=== PATIENT | female | born 1930 | race Caucasian/White ===

== ENCOUNTER → 2017-05-14 | Outpatient (CLI) | payer MEDICARE ==
--- NOTE | 2017-05-14 12:11 | FL ---
EXAMINATION TYPE: FL barium swallow w video DATE OF EXAM: 05/14/2017 MODIFIED SWALLOW / DEGLUTITION STUDY CLINICAL HISTORY: Dysphagia. TECHNIQUE: Deglutition study is performed utilizing thin liquid barium, pudding thick liquid barium, barium thick applesauce, and barium coated cracker. 1.27 minutes of fluoroscopy time was utilized an d 0 fluoroscopic images were saved although video real-time fluoroscopy was performed. COMPARISON: None. FINDINGS: The oral and pharyngeal phases show satisfactory initiation and propagation with all modali ties tested. Normal mastication is seen with solid modalities tested. There is no evidence of laryn geal aspiration with any modality tested. Transient laryngeal penetration was seen with the thin lavern um consistency. This resolved with the utilization of the chin tuck maneuver. No penetration with the remaining consistencies. No significant pharyngeal residue was appreciated. IMPRESSION: Transient laryngeal penetration with the thin barium consistency, resolved with the chin tuck maneuver. Please refer to speech therapist notes for further details if necessary.
== END | disposition home or self-care (01) ==
LOC: RADFLMAIN 10:53
PROVIDERS: ATTEND Internal Medicine
DX: R13.10 Dysphagia, unspecified (principal)
CPT/HCPCS: 74230

== ENCOUNTER 2017-08-26 08:07 | Day surgery (SDC) | payer MEDICARE ==
[2017-08-24 14:13] VITALS: BMI 25.8
[~2017-08-26 08:07] MED LIST: LACTATED RINGERS 1,000 ML IV SCH; LIDOCAINE 1% 20 ML VIAL (10MG/ML) FOR IV START INTRADERMA PRN
[2017-08-26] MEDS ORDERED: LACTATED RINGERS 1,000 ML IV ONE (08:17)
[2017-08-26 08:20] VITALS: RESP 16; TEMP 97.2
[2017-08-26] MEDS ORDERED: PROPOFOL 10 MG/ML 20 ML VIAL IV ONE (08:27)
[2017-08-26 08:38] LABS: Glucose,Whole Blood 99 mg/dL (75-99)
--- NOTE | 2017-08-26 08:44 | P.PCN ---
Date of Procedure: 08/26/17 Procedure(s) Performed: BRIEF HISTORY: Patient is a 87-year-old pleasant white female, scheduled for an elective colonoscopy as a part of evaluation of anemia and Hemoccult-positive stool. She denies any change in bowel habits or rectal bleeding. 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 PROCEDURE PERFORMED: Colonoscopy. PREOPERATIVE DIAGNOSIS: Hemoccult-positive stool and anemia. IV sedation per Anesthesia. PROCEDURE: After informed consent was obtained, the patient, was brought into the endoscopy unit. IV sedation was administered by Anesthesia under continuous monitoring. Digital rectal examination was normal. Initially the Olympus CF- 160 flexible video colonoscope was then inserted in the rectum, gradually advanced into the transverse colon where there was ileocolic anastomosis identified. The anastomotic site appeared normal. Mucosa of the transverse colon, descending colon, sigmoid colon, and rectum appeared normal. Scattered sigmoid diverticulosis seen.Retroflexion was performed in the rectum and small internal hemorrhoids were seen. The patient tolerated the procedure well. IMPRESSION: Normal-appearing colon from rectum to mid transverse colon with normal ileocolic anastomosis Scattered sigmoidal diverticulosis Small internal hemorrhoids RECOMMENDATIONS: Findings of this examination were discussed with the patient as well as her family. She was advised to be a high-fiber diet..
[2017-08-26 09:14] VITALS: BP 109/54; PULSE 60
== END 2017-08-26 09:45 | disposition home or self-care (01) ==
LOC: ORWHC2ENDO 08:07
PROVIDERS: ATTEND Internal Medicine Gastroenterology
DX: K57.30 Diverticulosis of large intestine without perforation or abscess without bleeding (principal); D64.9 Anemia, unspecified; K64.8 Other hemorrhoids; K21.9 Gastro-esophageal reflux disease without esophagitis; Z90.49 Acquired absence of other specified parts of digestive tract; I25.10 Atherosclerotic heart disease of native coronary artery without angina pectoris; I10 Essential (primary) hypertension; E11.9 Type 2 diabetes mellitus without complications; Z95.1 Presence of aortocoronary bypass graft; Z79.4 Long term (current) use of insulin; Z79.891 Long term (current) use of opiate analgesic; Z79.899 Other long term (current) drug therapy; G89.29 Other chronic pain; Z88.1 Allergy status to other antibiotic agents; Z88.5 Allergy status to narcotic agent; Z88.0 Allergy status to penicillin; Z88.8 Allergy status to other drugs, medicaments and biological substances
CPT/HCPCS: 45378; J2704

== ENCOUNTER 2019-06-08 10:49 | Observation (INO) | payer MEDICARE ==
--- NOTE | 2019-06-08 11:52 | ED ---
SOB HPI - General Chief Complaint: Shortness of Breath Stated Complaint: Cardiac issues Time Seen by Provider: 06/08/19 10:58 Source: patient, RN notes reviewed Mode of arrival: ambulatory Limitations: no limitations - History of Present Illness Initial Comments: This is a 88-year-old female who was sent in by her doctor for evaluation of exertional dyspnea and weakness she's had exertional dyspnea and sweats with exertion and some chills no dysuria hematuria had recent a urinary tract infection which was treated about 2 weeks ago. She denies any cough phlegm production no other symptoms MD Complaint: shortness of breath - Related Data Home Medications Medication Instructions Recorded Confirmed Ascorbic Acid [Vitamin C] 500 mg PO DAILY 05/08/16 06/08/19 Aspirin EC [Ecotrin Low Dose] 81 mg PO HS 05/08/16 06/08/19 Calcium 1000mg 1,000 mg PO DAILY 05/08/16 06/08/19 Cholecalciferol [Vitamin D3] 2,000 unit PO DAILY 05/08/16 06/08/19 Chromium Picolinate 400 mcg PO DAILY 05/08/16 06/08/19 Folic Acid 0.4 mg PO DAILY 05/08/16 06/08/19 HYDROcodone/APAP 7.5-325MG [[place] 1 tab PO Q6H PRN 05/08/16 06/08/19 7.5-325] Insulin Detemir [Levemir Flextouch] 18 units SQ HS 05/08/16 06/08/19 Magnesium Oxide [Mag-Ox] 400 mg PO DAILY 05/08/16 06/08/19 Omeprazole [PriLOSEC] 20 mg PO HS 05/08/16 06/08/19 fentaNYL [Fentanyl] 1 patch TRANSDERM Q72H 05/08/16 06/08/19 Fish Oil/Dha/Epa [Fish Oil 1,200 1 cap PO DAILY 07/22/17 06/08/19 mg Fish Oil] Insulin Lispro [humaLOG Kwikpen] See Protocol SQ AC-TID 08/24/17 06/08/19 Losartan/Hydrochlorothiazide 1 tab PO DAILY 08/24/17 06/08/19 [Losartan-Hctz 100-25 mg Tab] Vit C/E/Zn/Coppr/Lutein/Zeaxan 1 cap PO BID 08/24/17 06/08/19 [Preservision Areds 2 Softgel] Metoprolol Succinate (ER) [Toprol 25 mg PO HS 06/08/19 06/08/19 Xl] Ondansetron Odt [Zofran ODT] 4 mg PO Q12H PRN 06/08/19 06/08/19 Allergies Allergy/AdvReac Type Severity Reaction Status Date / Time cefuroxime [From Ceftin] Allergy Unknown Verified 06/08/19 15:10 Sulfa (Sulfonamide Allergy Swelling Verified 06/08/19 15:10 Antibiotics) amoxicillin [From Augmentin] AdvReac Nausea & Verified 06/08/19 15:10 Vomiting ciprofloxacin [From Cipro] AdvReac Nausea & Verified 06/08/19 15:10 Vomiting clavulanic acid AdvReac Nausea & Verified 06/08/19 15:10 [From Augmentin] Vomiting levofloxacin [From Levaquin] AdvReac Rapid Verified 06/08/19 15:10 Heart Rate midazolam [From Versed] AdvReac Unknown Verified 06/08/19 15:10 morphine AdvReac Nausea & Verified 06/08/19 15:10 Vomiting nitrofurantoin AdvReac Nausea & Verified 06/08/19 15:10 [From Macrobid] Vomiting Review of Systems ROS Statement: Those systems with pertinent positive or pertinent negative responses have been documented in the HPI. ROS Other: All systems not noted in ROS Statement are negative. Past Medical History Past Medical History: Coronary Artery Disease (CAD), Diabetes Mellitus, GERD/Reflux, Hypertension, Osteoarthritis (OA) Additional Past Medical History / Comment(s): hx ulcer, hx blood clots on colon after CABG surgery, History of Any Multi-Drug Resistant Organisms: None Reported Past Surgical History: Appendectomy, Back Surgery, Bowel Resection, Cholecystectomy, Coronary Bypass/CABG, Hysterectomy, Orthopedic Surgery Additional Past Surgical History / Comment(s): bowel resection 5 days after CABG, CABG 2002, carpal tunnel-lynsey, lynsey cataracts Past Anesthesia/Blood Transfusion Reactions: No Reported Reaction Past Psychological History: No Psychological Hx Reported Smoking Status: Never smoker Past Alcohol Use History: None Reported Past Drug Use History: None Reported - Past Family History Son(s) Family Medical History: Cancer General Exam - General Exam Comments Initial Comments: Is a well-developed well-nourished awake alert oriented 3 female Limitations: no limitations General appearance: alert, in no apparent distress Head exam: Present: atraumatic, normocephalic, normal inspection Eye exam: Present: normal appearance, PERRL, EOMI. Absent: scleral icterus, conjunctival injection, periorbital swelling ENT exam: Present: normal exam, mucous membranes moist Neck exam: Present: normal inspection. Absent: tenderness, meningismus, lym phadenopathy Respiratory exam: Present: normal lung sounds bilaterally. Absent: respiratory distress, wheezes, rales, rhonchi, stridor Cardiovascular Exam: Present: regular rate, normal rhythm, normal heart sounds. Absent: systolic murmur, diastolic murmur, rubs, gallop, clicks GI/Abdominal exam: Present: soft, normal bowel sounds. Absent: distended, tenderness, guarding, rebound, rigid Extremities exam: Present: normal inspection, full ROM, normal capillary refill. Absent: tenderness, pedal edema, joint swelling, calf tenderness Back exam: Present: normal inspection Neurological exam: Present: alert, oriented X3, CN II-XII intact Psychiatric exam: Present: normal affect, normal mood Skin exam: Present: warm, dry, intact, normal color. Absent: rash Course Vital Signs 06/08/19 10:57 Temperature 98.2 F Pulse Rate 72 Respiratory 18 Rate Blood Pressure 158/75 O2 Sat by Pulse 100 Oximetry Medical Decision Making - Medical Decision Making I did discuss findings with the patient and with Dr. Camacho patient will be admitted with cardiology consultation. Exertional dyspnea - Lab Data Result diagrams: 06/08/19 11:51 06/08/19 11:51 Lab Results 06/08/19 06/08/19 06/08/19 Range/Units 11:51 11:51 11:51 WBC 7.7 (3.8-10.6) k/uL RBC 4.39 (3.80-5.40) m/uL Hgb 12.3 (11.4-16.0) gm/dL Hct 36.4 (34.0-46.0) % MCV 82.7 (80.0-100.0) fL MCH 28.1 (25.0-35.0) pg MCHC 34.0 (31.0-37.0) g/dL RDW 13.5 (11.5-15.5) % Plt Count 251 (150-450) k/uL Neutrophils % 65 % Lymphocytes % 25 % Monocytes % 4 % Eosinophils % 2 % Basophils % 2 % Neutrophils # 5.0 (1.3-7.7) k/uL Lymphocytes # 1.9 (1.0-4.8) k/uL Monocytes # 0.3 (0-1.0) k/uL Eosinophils # 0.1 (0-0.7) k/uL Basophils # 0.1 (0-0.2) k/uL PT (9.0-12.0) sec INR (<1.2) APTT (22.0-30.0) sec Sodium 132 L (137-145) mmol/L Potassium 4.9 (3.5-5.1) mmol/L Chloride 97 L (98-107) mmol/L Carbon Dioxide 26 (22-30) mmol/L Anion Gap 9 mmol/L BUN 17 (7-17) mg/dL Creatinine 0.71 (0.52-1.04) mg/dL Est GFR (CKD-EPI)AfAm 89 (>60 ml/min/1.73 sqM) Est GFR (CKD-EPI)NonAf 77 (>60 ml/min/1.73 sqM) Glucose 211 H (74-99) mg/dL Calcium 9.8 (8.4-10.2) mg/dL Magnesium 1.8 (1.6-2.3) mg/dL Total Bilirubin 1.2 (0.2-1.3) mg/dL AST 30 (14-36) U/L ALT 18 (9-52) U/L Alkaline Phosphatase 102 (38-126) U/L Creatine Kinase 202 H (30-135) U/L Troponin I (0.000-0.034) ng/mL NT-Pro-B Natriuret Pep 339 pg/mL Total Protein 7.3 (6.3-8.2) g/dL Albumin 4.2 (3.5-5.0) g/dL 06/08/19 06/08/19 Range/Units 11:51 11:51 WBC (3.8-10.6) k/uL RBC (3.80-5.40) m/uL Hgb (11.4-16.0) gm/dL Hct (34.0-46.0) % MCV (80.0-100.0) fL MCH (25.0-35.0) pg MCHC (31.0-37.0) g/dL RDW (11.5-15.5) % Plt Count (150-450) k/uL Neutrophils % % Lymphocytes % % Monocytes % % Eosinophils % % Basophils % % Neutrophils # (1.3-7.7) k/uL Lymphocytes # (1.0-4.8) k/uL Monocytes # (0-1.0) k/uL Eosinophils # (0-0.7) k/uL Basophils # (0-0.2) k/uL PT 10.2 (9.0-12.0) sec INR 0.9 (<1.2) APTT 22.1 (22.0-30.0) sec Sodium (137-145) mmol/L Potassium (3.5-5.1) mmol/L Chloride (98-107) mmol/L Carbon Dioxide (22-30) mmol/L Anion Gap mmol/L BUN (7-17) mg/dL Creatinine (0.52-1.04) mg/dL Est GFR (CKD-EPI)AfAm (>60 ml/min/1.73 sqM) Est GFR (CKD-EPI)NonAf (>60 ml/min/1.73 sqM) Glucose (74-99) mg/dL Calcium (8.4-10.2) mg/dL Magnesium (1.6-2.3) mg/dL Total Bilirubin (0.2-1.3) mg/dL AST (14-36) U/L ALT (9-52) U/L Alkaline Phosphatase (38-126) U/L Creatine Kinase (30-135) U/L Troponin I <0.012 (0.000-0.034) ng/mL NT-Pro-B Natriuret Pep pg/mL Total Protein (6.3-8.2) g/dL Albumin (3.5-5.0) g/dL - EKG Data -: EKG Interpreted by [facility] EKG shows normal: sinus rhythm (Sinus rhythm first-degree AV block poor R-wave progression rate was 65 ND interval 214 QRS 108 QT since QTC 436/453 T consistent with the EKG submitted from the office.) - Radiology Data Radiology results: report reviewed (Imaging was reviewed no acute findings.), image reviewed Disposition Clinical Impression: Exertional dyspnea Disposition: ADMITTED IP TO THIS HOSP Condition: Fair Referrals: Wilbert Simon MD [Primary Care Provider] - 1-2 days
[2019-06-08 12:18] LABS: Basophils # (A) 0.1 k/uL (0-0.2); Basophils % (A) 2 %; Eosinophils # (A) 0.1 k/uL (0-0.7); Eosinophils % (A) 2 %; HCT 36.4 % (34.0-46.0); HGB 12.3 gm/dL (11.4-16.0); Lymphocytes # (A) 1.9 k/uL (1.0-4.8); Lymphocytes % (A) 25 %; MCH 28.1 pg (25.0-35.0); MCV 82.7 fL (80.0-100.0); Mean Platelet Volume 6.6; Monocytes # (A) 0.3 k/uL (0-1.0); Monocytes % (A) 4 %; Neutrophils % (A) 65 %; Platelet Count 251 k/uL (150-450); RBC 4.39 m/uL (3.80-5.40); RDW 13.5 % (11.5-15.5); WBC 7.7 k/uL (3.8-10.6)
[2019-06-08 12:28] LABS: Albumin 4.2 g/dL (3.5-5.0); Calcium 9.8 mg/dL (8.4-10.2); Magnesium 1.8 mg/dL (1.6-2.3); Total Bilirubin 1.2 mg/dL (0.2-1.3); Total Protein 7.3 g/dL (6.3-8.2)
[2019-06-08 12:39] LABS: INR 0.9 (<1.2); Partial Thromboplastin Time 22.1 sec (22.0-30.0); Prothrombin Time 10.2 sec (9.0-12.0)
[2019-06-08 12:41] LABS: Potassium 4.9 mmol/L (3.5-5.1)
--- NOTE | 2019-06-08 12:42 | XR ---
EXAMINATION TYPE: XR chest 2V DATE OF EXAM: 06/08/2019 COMPARISON: Prior chest 05/08/2016 HISTORY: Difficulty breathing, shortness of breath TECHNIQUE: Frontal and lateral views of the chest are obtained. FINDINGS: Patient is post median sternotomy and rotated, technique is apical lordotic, there are over lying cardiac leads. Right hemidiaphragm remains elevated. There is no focal air space opacity, pleur al effusion, or pneumothorax seen. The cardiac silhouette size is stable. The osseous structures a re intact, marked arthropathy noted in left shoulder, and at the bilateral acromioclavicular joints. Aorta is dense. IMPRESSION: No acute cardiopulmonary process. Additional findings above.
[2019-06-08] MEDS ORDERED: NALOXONE 0.4 MG/ML 1 ML VIAL IV PRN (15:47)
[2019-06-08] MEDS ORDERED: ONDANSETRON ODT 4 MG TAB PO PRN (15:49)
[2019-06-08] MEDS: HYDROcodone/APAP 7.5-325MG 1 EACH TAB PO PRN (16:40)
[2019-06-08] MEDS: SODIUM CHLORIDE 0.9% 1,000 ML IV SCH (17:52)
[2019-06-08 20:24] LABS: Glucose,Whole Blood 238 mg/dL (75-99)
[2019-06-08] MEDS ORDERED: METOPROLOL SUCCINATE (ER) 25 MG TAB.ER.24H PO SCH (21:00)
[2019-06-08] MEDS ORDERED: ASPIRIN 81 MG PO SCH (21:00)
[2019-06-08] MEDS: PANTOPRAZOLE 40 MG TABLET PO SCH (21:38)
[2019-06-08] MEDS: INSULIN DETEMIR (LEVEMIR) 100 UNIT/ML SYR SQ SCH (21:38)
[2019-06-08] MEDS: VIT A,C & E-LUTEIN-MINERALS 1 EACH TAB PO SCH (21:39)
[2019-06-08] MEDS: INSULIN ASPART (NovoLOG) 100 UNIT/ML VIAL SQ SCH (21:42)
[2019-06-09] MEDS: HYDROcodone/APAP 7.5-325MG 1 EACH TAB PO PRN ×3 (04:29→23:23)
[2019-06-09 06:43] LABS: Glucose,Whole Blood 121 mg/dL (75-99)
--- NOTE | 2019-06-09 06:46 | P.CRDCN ---
History of Present Illness Consult date: 06/09/19 Chief complaint: Shortness of breath History of present illness: This is a very pleasant 88-year-old female patient who sees Dr. Barclay in the off ice on regular basis with a past medical history significant for coronary artery disease and prior coronary artery bypass grafting in 2002 where the patient receives 3 bypasses with unknown details at this point, diabetes, hypertension, dyslipidemia, presented to the emergency room complaining of shortness of breath. The patient was seen recently by her primary care physician who recommended the patient to go to the hospital. For the last 4 weeks, she has been experiencing progressive exertional dyspnea without orthopnea or PND. She did not have any lower extremities edema. Beside that she has been experiencing discomfort in between her shoulders. Her symptoms aren't clearly exertional and better with resting and it seemed that they have been progressing for the last few days. She stated that she cannot work more than a few steps before she stopped because of the shortness of breath and sometimes discomfort in between the shoulders. No symptoms of dizziness or lightheadedness, heart racing or fluttering, or syncope. The patient stated that she did not have any stress test or heart catheterization for the last several years. This time, she was ruled out for acute coronary event. The troponin came in to be unremarkable. The EKG showed sinus rhythm with ST changes. The heart rate has been on the slow side and her heart rate has been in the 40s and 50s and currently she is on Toprol-XL 25 mg by mouth daily which I am going to decrease to 12.5 mg by mouth daily. The chest x-ray was unremarkable. The BMP is unremarkable. The rest of blood work came in to be unremarkable. I am concerned about severe underlying coronary artery disease behind her symptoms which include the shortness of breath and chest discomfort with exertion. I'm going to obtain an echocardiogram was Doppler. I did recommend proceeding with coronary angiogram for definite diagnosis. Past Medical History Past Medical History: Coronary Artery Disease (CAD), Diabetes Mellitus, Eye Disorder, GERD/Reflux, Hearing Disorder / Deafness, Hypertension, Musc uloskeletal Disorder, Osteoarthritis (OA), Vascular Disorder Additional Past Medical History / Comment(s): hx ulcer, hx blood clots on ascending colon after CABG surgery, Chronic back pain, left shoulder bad, bilateral hip pain, vericose veins History of Any Multi-Drug Resistant Organisms: None Reported Past Surgical History: Appendectomy, Back Surgery, Bowel Resection, Cholecystectomy, Coronary Bypass/CABG, Hysterectomy, Orthopedic Surgery Additional Past Surgical History / Comment(s): bowel resection 5 days after CABG, CABG x3 2002, carpal tunnel-lynsey, lynsey cataracts, vericose vein stripping Past Anesthesia/Blood Transfusion Reactions: No Reported Reaction Past Psychological History: No Psychological Hx Reported Smoking Status: Never smoker Past Alcohol Use History: None Reported Past Drug Use History: None Reported - Past Family History Son(s) Family Medical History: Cancer Additional Family Medical History / Comment(s): esophageal - Daughter(s) Additional Family Medical History / Comment(s): 25% kidney function - Mother Family Medical History: Diabetes Mellitus Additional Family Medical History / Comment(s): heart issues Father Additional Family Medical History / Comment(s): breathing issues Medications and Allergies Home Medications Medication Instructions Recorded Confirmed Type Ascorbic Acid [Vitamin C] 500 mg PO DAILY 05/08/16 06/08/19 History Aspirin EC [Ecotrin Low Dose] 81 mg PO HS 05/08/16 06/08/19 History Calcium 1000mg 1,000 mg PO DAILY 05/08/16 06/08/19 History Cholecalciferol [Vitamin D3] 2,000 unit PO DAILY 05/08/16 06/08/19 History Chromium Picolinate 400 mcg PO DAILY 05/08/16 06/08/19 History Folic Acid 0.4 mg PO DAILY 05/08/16 06/08/19 History HYDROcodone/APAP 7.5-325MG [[place] 1 tab PO Q6H PRN 05/08/16 06/08/19 History 7.5-325] Insulin Detemir [Levemir Flextouch] 18 units SQ HS 05/08/16 06/08/19 History Magnesium Oxide [Mag-Ox] 400 mg PO DAILY 05/08/16 06/08/19 History Omeprazole [PriLOSEC] 20 mg PO HS 05/08/16 06/08/19 History fentaNYL [Fentanyl] 1 patch TRANSDERM Q72H 05/08/16 06/08/19 History Fish Oil/Dha/Epa [Fish Oil 1,200 1 cap PO DAILY 07/22/17 06/08/19 History mg Fish Oil] Insulin Lispro [humaLOG Kwikpen] See Protocol SQ AC-TID 08/24/17 06/08/19 History Losartan/Hydrochlorothiazide 1 tab PO DAILY 08/24/17 06/08/19 History [Losartan-Hctz 100-25 mg Tab] Vit C/E/Zn/Coppr/Lutein/Zeaxan 1 cap PO BID 08/24/17 06/08/19 History [Preservision Areds 2 Softgel] Metoprolol Succinate (ER) [Toprol 25 mg PO HS 06/08/19 06/08/19 History Xl] Ondansetron Odt [Zofran ODT] 4 mg PO Q12H PRN 06/08/19 06/08/19 History Allergies Allergy/AdvReac Type Severity Reaction Status Date / Time cefuroxime [From Ceftin] Allergy Unknown Verified 06/08/19 15:10 Sulfa (Sulfonamide Allergy Swelling Verified 06/08/19 15:10 Antibiotics) amoxicillin [From Augmentin] AdvReac Nausea & Verified 06/08/19 15:10 Vomiting ciprofloxacin [From Cipro] AdvReac Nausea & Verified 06/08/19 15:10 Vomiting clavulanic acid AdvReac Nausea & Verified 06/08/19 15:10 [From Augmentin] Vomiting levofloxacin [From Levaquin] AdvReac Rapid Verified 06/08/19 15:10 Heart Rate midazolam [From Versed] AdvReac Unknown Verified 06/08/19 15:10 morphine AdvReac Nausea & Verified 06/08/19 15:10 Vomiting nitrofurantoin AdvReac Nausea & Verified 06/08/19 15:10 [From Macrobid] Vomiting Physical Exam Vitals: Vital Signs Temp Pulse Pulse Pulse Pulse Resp BP 06/09/19 04:00 97.6 F 47 L 54 L 66 18 06/09/19 00:00 98.2 F 55 L 18 06/08/19 23:59 16 06/08/19 20:00 16 06/08/19 19:48 98.1 F 66 18 06/08/19 17:00 97.7 F 73 18 06/08/19 16:45 72 18 129/68 06/08/19 10:57 98.2 F 72 18 158/75 BP Pulse Ox 06/09/19 04:00 125/58 98 06/09/19 00:00 111/55 98 06/08/19 23:59 06/08/19 20:00 06/08/19 19:48 147/67 97 06/08/19 17:00 181/91 99 06/08/19 16:45 98 06/08/19 10:57 100 Intake and Output 06/08/19 06/08/19 06/09/19 14:59 22:59 06:59 Intake Total 200 Balance 200 Intake: Oral 200 Other: Voiding Method Toilet Toilet # Voids 1 1 # Bowel Movements 1 Weight 74.843 kg - Constitutional General appearance: no acute distress - Respiratory Respiratory: bilateral: CTA - Cardiovascular Rhythm: regular Heart sounds: normal: S1, S2 Abnormal Heart Sounds: systolic murmur Results 06/08/19 11:51 06/08/19 11:51 Cardiac Enzymes 06/08/19 06/08/19 06/09/19 Range/Units 11:51 11:51 00:28 AST 30 (14-36) U/L Troponin I <0.012 <0.012 (0.000-0.034) ng/mL 06/09/19 Range/Units 05:43 AST (14-36) U/L Troponin I <0.012 (0.000-0.034) ng/mL Coagulation 06/08/19 Range/Units 11:51 PT 10.2 (9.0-12.0) sec APTT 22.1 (22.0-30.0) sec CBC 06/08/19 Range/Units 11:51 WBC 7.7 (3.8-10.6) k/uL RBC 4.39 (3.80-5.40) m/uL Hgb 12.3 (11.4-16.0) gm/dL Hct 36.4 (34.0-46.0) % Plt Count 251 (150-450) k/uL Comprehensive Metabolic Panel 06/08/19 Range/Units 11:51 Sodium 132 L (137-145) mmol/L Potassium 4.9 (3.5-5.1) mmol/L Chloride 97 L (98-107) mmol/L Carbon Dioxide 26 (22-30) mmol/L BUN 17 (7-17) mg/dL Creatinine 0.71 (0.52-1.04) mg/dL Glucose 211 H (74-99) mg/dL Calcium 9.8 (8.4-10.2) mg/dL AST 30 (14-36) U/L ALT 18 (9-52) U/L Alkaline Phosphatase 102 (38-126) U/L Total Protein 7.3 (6.3-8.2) g/dL Albumin 4.2 (3.5-5.0) g/dL Current Medications Generic Name Dose Route Start Last Admin Trade Name Freq PRN Reason Stop Dose Admin Hydrocodone Bitart/Acetaminophen 1 each 06/08/19 15:49 06/09/19 04:29 [place] 7.5-325 PO 1 each Q6H PRN Administration Pain Ascorbic Acid 500 mg 06/09/19 09:00 Vitamin C PO DAILY [facility] Aspirin 81 mg 06/08/19 21:00 06/08/19 21:38 Aspirin PO 81 mg HS [facility] Administration Calcium Carbonate/Glycine 1,000 mg 06/09/19 09:00 Tums PO DAILY [facility] Cholecalciferol 2,000 unit 06/09/19 09:00 Vitamin D3 (25 Mcg = 1000 Iu) PO DAILY [facility] Fentanyl 1 patch 06/08/19 16:00 06/08/19 17:35 Duragesic 25mcg/Hr Patch TRANSDERM Not Given Q72H [facility] Folic Acid 0.5 mg 06/09/19 09:00 Folic Acid PO DAILY [facility] HCTZ/Losartan Potassium 2 each 06/09/19 09:00 Hyzaar 50-12.5 PO DAILY [facility] Sodium Chloride 1,000 mls @ 20 mls/hr 06/08/19 16:00 06/08/19 17:52 Saline 0.9% IV 20 mls/hr .Q24H [facility] Administration Insulin Aspart 0 unit 06/08/19 21:00 06/08/19 21:42 Novolog SQ 3 unit ACHS [facility] Administration Protocol Insulin Detemir 18 unit 06/08/19 21:00 06/08/19 21:38 Levemir SQ 18 unit HS [facility] Administration Magnesium Oxide 400 mg 06/09/19 09:00 Mag-Ox PO DAILY [facility] Metoprolol Succinate 25 mg 06/08/19 21:00 06/08/19 17:53 Toprol Xl PO 25 mg HS [facility] Administration Multivitamins/Minerals 1 each 06/08/19 21:00 06/08/19 21:39 Ivite PO 1 each BID [facility] Administration Naloxone HCl 0.2 mg 06/08/19 15:47 Narcan IV Q2M PRN Opioid Reversal Ondansetron HCl 4 mg 06/08/19 15:49 Zofran Odt PO Q12H PRN Nausea Pantoprazole Sodium 40 mg 06/08/19 21:00 06/08/19 21:38 Protonix PO 40 mg HS [facility] Administration Intake and Output 06/08/19 06/08/19 06/09/19 14:59 22:59 06:59 Intake Total 200 Balance 200 Intake: Oral 200 Other: Voiding Method Toilet Toilet # Voids 1 1 # Bowel Movements 1 Weight 74.843 kg Patient Weight 06/09/19 06:59 Weight 74.843 kg 06/08/19 11:51 06/08/19 11:51 Assessment and Plan Assessment: Assessment #1 exertional shortness of breath and sometimes chest discomfort #2 severe CAD and status post CABG with unknown details #3 hypertension #4 diabetes Plan #1 acute coronary event was ruled out #2 the patient's symptoms are concerning for unstable angina and severe coronary artery disease #3 I will obtain an echocardiogram was Doppler #4 I did recommend proceeding with coronary angiogram Thank you for allowing us participate in her care
[2019-06-09] MEDS: INSULIN ASPART (NovoLOG) 100 UNIT/ML VIAL SQ SCH ×4 (08:37→21:08)
[2019-06-09] MEDS ORDERED: CHROMIUM PICOLINATE 400 MCG PO SCH (09:00)
[2019-06-09] MEDS ORDERED: NON FORMULARY DRUG (Fish Oil/Dha/Epa [Fish Oil 1,200 Mg Fish Oil] 1 CAP) PO SCH (09:00)
[2019-06-09] MEDS: MAGNESIUM OXIDE 400 MG TAB PO SCH (10:12)
[2019-06-09] MEDS: CHOLECALCIFEROL 1,000 UNIT TAB PO SCH (10:12)
[2019-06-09] MEDS: CALCIUM CARBONATE 500 MG CHEWABLE PO SCH (10:13)
[2019-06-09] MEDS: FOLIC ACID 1 MG TAB PO SCH (10:13)
[2019-06-09] MEDS: LOSARTAN-HCTZ 50-12.5 MG 1 EACH TAB PO SCH (10:13)
[2019-06-09] MEDS: VIT A,C & E-LUTEIN-MINERALS 1 EACH TAB PO SCH ×2 (10:13→21:09)
[2019-06-09] MEDS: ASCORBIC ACID 500 MG TAB PO SCH (10:14)
--- NOTE | 2019-06-09 10:38 | ECHOF ---
Referral Reason:SOB MEASUREMENTS -------- HEIGHT: 165.1 cm WEIGHT: 74.8 kg BP: 125/58 RVIDd: 3.6 cm (< 3.3) IVSd: 1.1 cm (0.6 - 1.1) LVIDd: 4.1 cm (3.9 - 5.3) LVPWd: 1.8 cm (0.6 - 1.1) IVSs: 1.2 cm LVIDs: 3.8 cm LVPWs: 1.3 cm LA Diam: 4.4 cm (2.7 - 3.8) LAESV Index (A-L): 30.02 ml/m Ao Diam: 3.2 cm (2.0 - 3.7) AV Cusp: 1.1 cm (1.5 - 2.6) LA Diam: 4.2 cm (2.7 - 3.8) MV EXCURSION: 14.230 mm (> 18.000) MV EF SLOPE: 69 mm/s (70 - 150) EPSS: 0.2 cm MV E Avni: 0.59 m/s MV DecT: 348 ms MV A Avni: 0.88 m/s MV E/A Ratio: 0.67 RAP: 5.00 mmHg RVSP: 29.73 mmHg FINDINGS -------- Sinus rhythm. This was a technically adequate study. The left ventricular size is normal. There is borderline concentric left ventricular hypertrophy. Overall left ventricular systolic function is low-normal with, an EF between 50 - 55 %. Apical sep geoffrey LV wall motion is hypokinetic. The right ventricle is normal in size. The left atrial size is normal. The right atrial size is normal. There is mild aortic valve sclerosis. There is no evidence of aortic regurgitation. Mild mitral annular calcification present. Mild mitral regurgitation is present. Mild tricuspid regurgitation present. Right ventricular systolic pressure is normal at < 35 mmHg. There is no evidence of pulmonary hypertension. There is no pulmonic regurgitation present. The aortic root size is normal. Echo free space represents a pericardial fat pad. CONCLUSIONS -------- 1. Sinus rhythm. 2. This was a technically adequate study. 3. The left ventricular size is normal. 4. There is borderline concentric left ventricular hypertrophy. 5. Overall left ventricular systolic function is low-normal with, an EF between 50 - 55 %. 6. Apical septum LV wall motion is hypokinetic. 7. The right ventricle is normal in size. 8. The left atrial size is normal. 9. The right atrial size is normal. 10. There is mild aortic valve sclerosis. 11. Mild mitral annular calcification present. 12. Mild mitral regurgitation is present. 13. Mild tricuspid regurgitation present. 14. Right ventricular systolic pressure is normal at < 35 mmHg. 15. There is no evidence of pulmonary hypertension. 16. There is no pulmonic regurgitation present. 17. The aortic root size is normal. 18. Echo free space represents a pericardial fat pad. DENTAL INTERN: Juliette Hoover RDCS
[2019-06-09 10:52] LABS: Appearance,Urine Clear (Clear); Bacteria,Urine Rare /hpf; Bilirubin,Urine Negative (Negative); Blood,Urine Negative (Negative); Color,Urine Light Yellow; Glucose,Urine (UA) Negative (Negative); Hyaline Casts,Urine 1 /lpf (0-2); Ketones,Urine Negative (Negative); Leukocyte Esterase,Urine Trace (Negative); Nitrite,Urine Negative (Negative); PH, Urine 6.5 (5.0-8.0); Protein,Urine Negative (Negative); RBC,Urine 1 /hpf (0-5); Squamous Epithelial Cell,Urine <1 /hpf (0-4); Urobilinogen,Urine <2.0 mg/dL (<2.0); WBC,Urine 4 /hpf (0-5)
[2019-06-09] MEDS ORDERED: NITROGLYCERIN SL TABS 0.4 MG TAB SUBLINGUAL PRN (11:12)
[2019-06-09] MEDS ORDERED: ALPRAZolam 0.5 MG TAB PO PRN (11:12)
[2019-06-09] MEDS ORDERED: ALPRAZolam 0.25 MG TAB PO PRN (11:12)
[2019-06-09] MEDS ORDERED: SODIUM CHLORIDE 0.9% 1,000 ML in EMPTY BAG 1 BAG IV ONE (11:12)
[2019-06-09 11:47] LABS: Glucose,Whole Blood 168 mg/dL (75-99)
[2019-06-09 16:37] LABS: Glucose,Whole Blood 140 mg/dL (75-99)
[2019-06-09] MEDS: SODIUM CHLORIDE 0.9% 1,000 ML IV SCH (19:43)
[2019-06-09 20:11] LABS: Glucose,Whole Blood 194 mg/dL (75-99)
--- NOTE | 2019-06-09 20:19 | P.HPIM ---
History of Present Illness H&P Date: 06/09/19 Chief Complaint: Short of breath with exertion History of presenting complaint: This is a very pleasant 88-year-old patient of Dr. Wilbert Franco. Chronic stable medical conditions include coronary artery disease with coronary bypass in 2002, diabetes mellitus type 2, GERD, hypertension, osteoarthritis, chronic back pain, varicose veins. This is noted that she's been becoming weaker progressively. Gets very easily short of breath with exertion. Getting tired very easily and oriented. Appetite is somewhat gone down. Has been no significant weight loss. No change in bowel or urine pattern. No cough or shortness of breath at rest otherwise. No fever no chills. Review of systems: GEN.: Weak and tired EYES: None HEENT: None NECK: None RESPIRATORY: None CARDIOVASCULAR: As above GASTROINTESTINAL: None GENITOURINARY: None MUSCULOSKELETAL: Joint pains LYMPHATICS: None HEMATOLOGICAL: None PSYCHIATRY: None NEUROLOGICAL: None Social history: Lives alone. Does use a walker. No smoking no alcohol. Physical examination: VITAL SIGNS: 98.2, 72, 18, 150-75, 100% room air GENERAL: BMI 26.6, sitting upon in distress. EYES: Pupils equal. Conjunctiva normal. HEENT: External appearance of nose and ears normal, oral cavity grossly normal. NECK: JVD not raised; masses not palpable. HEART: First and second heart sounds are normal; no edema. LUNGS: Respiratory rate normal; clear to auscultation. ABDOMEN: Soft, nontender, liver spleen not palpable, no masses palpable. PSYCH: Alert and oriented x3; mood and affect normal. NEUROLOGICAL: Cranial nerves grossly intact; no facial asymmetry, power and sensation grossly intact. LYMPHATICS: No lymph nodes palpable in the axilla and neck LOWER extremities: Prominent varicose veins INVESTIGATIONS, reviewed in the clinical context: White count 7.7 hemoglobin 12.3 potassium 4.9 creatinine 0.71 Troponin I 3 negative ProBNP 339 EKG tracing personally reviewed by me-ST segment depression in 1 aVL and lateral leads Chest x-ray film personally reviewed by me-lung harkins are clear with elevation of the right diaphragm 2-D echo-EF 50-55%. Septal albuterol motion is hypokinetic Assessment: -Unstable angina in a patient with known coronary artery disease. Patient has ST segment changes in the inferolateral leads. Suspect disease in the right coronary system -Coronary artery disease with prior history of coronary bypass -Diabetes mellitus type 2 -GERD -Essential hypertension -Primary osteoarthritis -Varicose veins lower extremity -Chronically elevated right diaphragm Plan: -Home medications resumed. Troponins were negative. Accu-Cheks will be followed. Cardiology was consulted. Patient is scheduled for cardiac catheterization tomorrow. Care was discussed with the patient. Question R olivia. Past Medical History Past Medical History: Coronary Artery Disease (CAD), Diabetes Mellitus, Eye Disorder, GERD/Reflux, Hearing Disorder / Deafness, Hypertension, Musculoskeletal Disorder, Osteoarthritis (OA), Vascular Disorder Additional Past Medical History / Comment(s): hx ulcer, hx blood clots on ascending colon after CABG surgery, Chronic back pain, left shoulder bad, bilateral hip pain, vericose veins History of Any Multi-Drug Resistant Organisms: None Reported Past Surgical History: Appendectomy, Back Surgery, Bowel Resection, Cholecystectomy, Coronary Bypass/CABG, Hysterectomy, Orthopedic Surgery Additional Past Surgical History / Comment(s): bowel resection 5 days after CABG, CABG x3 2002, carpal tunnel-lynsey, lynsey cataracts, vericose vein stripping Past Anesthesia/Blood Transfusion Reactions: No Reported Reaction Past Psychological History: No Psychological Hx Reported Smoking Status: Never smoker Past Alcohol Use History: None Reported Past Drug Use History: None Reported - Past Family History Son(s) Family Medical History: Cancer Additional Family Medical History / Comment(s): esophageal - Daughter(s) Additional Family Medical History / Comment(s): 25% kidney function - Mother Family Medical History: Diabetes Mellitus Additional Family Medical History / Comment(s): heart issues Father Additional Family Medical History / Comment(s): breathing issues Medications and Allergies Home Medications Medication Instructions Recorded Confirmed Type Ascorbic Acid [Vitamin C] 500 mg PO DAILY 05/08/16 06/08/19 History Aspirin EC [Ecotrin Low Dose] 81 mg PO HS 05/08/16 06/08/19 History Calcium 1000mg 1,000 mg PO DAILY 05/08/16 06/08/19 History Cholecalciferol [Vitamin D3] 2,000 unit PO DAILY 05/08/16 06/08/19 History Chromium Picolinate 400 mcg PO DAILY 05/08/16 06/08/19 History Folic Acid 0.4 mg PO DAILY 05/08/16 06/08/19 History HYDROcodone/APAP 7.5-325MG [[place] 1 tab PO Q6H PRN 05/08/16 06/08/19 History 7.5-325] Insulin Detemir [Levemir Flextouch] 18 units SQ HS 05/08/16 06/08/19 History Magnesium Oxide [Mag-Ox] 400 mg PO DAILY 05/08/16 06/08/19 History Omeprazole [PriLOSEC] 20 mg PO HS 05/08/16 06/08/19 History fentaNYL [Fentanyl] 1 patch TRANSDERM Q72H 05/08/16 06/08/19 History Fish Oil/Dha/Epa [Fish Oil 1,200 1 cap PO DAILY 07/22/17 06/08/19 History mg Fish Oil] Insulin Lispro [humaLOG Kwikpen] See Protocol SQ AC-TID 08/24/17 06/08/19 History Losartan/Hydrochlorothiazide 1 tab PO DAILY 08/24/17 06/08/19 History [Losartan-Hctz 100-25 mg Tab] Vit C/E/Zn/Coppr/Lutein/Zeaxan 1 cap PO BID 08/24/17 06/08/19 History [Preservision Areds 2 Softgel] Metoprolol Succinate (ER) [Toprol 25 mg PO HS 06/08/19 06/08/19 History Xl] Ondansetron Odt [Zofran ODT] 4 mg PO Q12H PRN 06/08/19 06/08/19 History Allergies Allergy/AdvReac Type Severity Reaction Status Date / Time cefuroxime [From Ceftin] Allergy Unknown Verified 06/08/19 15:10 Sulfa (Sulfonamide Allergy Swelling Verified 06/08/19 15:10 Antibiotics) amoxicillin [From Augmentin] AdvReac Nausea & Verified 06/08/19 15:10 Vomiting ciprofloxacin [From Cipro] AdvReac Nausea & Verified 06/08/19 15:10 Vomiting clavulanic acid AdvReac Nausea & Verified 06/08/19 15:10 [From Augmentin] Vomiting levofloxacin [From Levaquin] AdvReac Rapid Verified 06/08/19 15:10 Heart Rate midazolam [From Versed] AdvReac Unknown Verified 06/08/19 15:10 morphine AdvReac Nausea & Verified 06/08/19 15:10 Vomiting nitrofurantoin AdvReac Nausea & Verified 06/08/19 15:10 [From Macrobid] Vomiting Physical Exam Vitals: Vital Signs Temp Pulse Pulse Pulse Pulse Resp BP 06/09/19 07:05 97.8 F 57 L 18 06/09/19 04:00 97.6 F 47 L 54 L 66 18 06/09/19 00:00 98.2 F 55 L 18 06/08/19 23:59 16 06/08/19 20:00 16 06/08/19 19:48 98.1 F 66 18 06/08/19 17:00 97.7 F 73 18 06/08/19 16:45 72 18 129/68 BP Pulse Ox 06/09/19 07:05 110/64 97 06/09/19 04:00 125/58 98 06/09/19 00:00 111/55 98 06/08/19 23:59 06/08/19 20:00 06/08/19 19:48 147/67 97 06/08/19 17:00 181/91 99 06/08/19 16:45 98 Intake and Output 06/08/19 06/09/19 06/09/19 22:59 06:59 14:59 Intake Total 200 Output Total 400 Balance 200 -400 Intake: Oral 200 Output: Urine 400 Other: Voiding Method Toilet Toilet Toilet # Voids 1 1 # Bowel Movements 1 Results CBC & Chem 7: 06/08/19 11:51 06/08/19 11:51 Labs: Abnormal Lab Results - Last 24 Hours (Table) 06/08/19 06/08/19 06/09/19 Range/Units 11:51 20:12 06:42 Sodium 132 L (137-145) mmol/L Chloride 97 L (98-107) mmol/L Glucose 211 H (74-99) mg/dL POC Glucose (mg/dL) 238 H 121 H (75-99) mg/dL Creatine Kinase 202 H (30-135) U/L Ur Leukocyte Esterase (Negative) Urine Bacteria (None) /hpf 06/09/19 Range/Units 10:10 Sodium (137-145) mmol/L Chloride (98-107) mmol/L Glucose (74-99) mg/dL POC Glucose (mg/dL) (75-99) mg/dL Creatine Kinase (30-135) U/L Ur Leukocyte Esterase Trace H (Negative) Urine Bacteria Rare H (None) /hpf Thrombosis Risk Factor Assmnt - Choose All That Apply Any of the Below Risk Factors Present?: Yes Each Factor Represents 1 point: Obesity (BMI >25) Other Risk Factors: Yes Each Risk Factor Represents 3 Points: Age 75 years or older Other congenital or acquired thrombophilia - If yes, enter type in comment: No Thrombosis Risk Factor Assessment Total Risk Factor Score: 4 Thrombosis Risk Factor Assessment Level: Moderate Risk
[2019-06-09] MEDS ORDERED: ASPIRIN 325 MG TAB PO SCH (21:00)
[2019-06-09] MEDS: METOPROLOL SUCCINATE (ER) 25 MG TAB.ER.24H PO SCH (21:08)
[2019-06-09] MEDS: PANTOPRAZOLE 40 MG TABLET PO SCH (21:08)
[2019-06-09] MEDS: INSULIN DETEMIR (LEVEMIR) 100 UNIT/ML SYR SQ SCH (21:09)
[2019-06-10] MEDS ORDERED: ATORVASTATIN 80 MG TAB PO ONE (06:00)
[2019-06-10] MEDS: FOLIC ACID 1 MG TAB PO SCH (06:15)
[2019-06-10] MEDS: CHOLECALCIFEROL 1,000 UNIT TAB PO SCH (06:15)
[2019-06-10] MEDS: HYDROcodone/APAP 7.5-325MG 1 EACH TAB PO PRN ×2 (06:15→20:42)
[2019-06-10] MEDS: MAGNESIUM OXIDE 400 MG TAB PO SCH (06:16)
[2019-06-10] MEDS: LOSARTAN-HCTZ 50-12.5 MG 1 EACH TAB PO SCH (06:16)
[2019-06-10] MEDS: VIT A,C & E-LUTEIN-MINERALS 1 EACH TAB PO SCH ×2 (06:16→23:16)
[2019-06-10] MEDS: ASCORBIC ACID 500 MG TAB PO SCH (06:16)
[2019-06-10] MEDS: CALCIUM CARBONATE 500 MG CHEWABLE PO SCH (06:16)
[2019-06-10 06:41] LABS: Glucose,Whole Blood 138 mg/dL (75-99)
[2019-06-10] MEDS: INSULIN ASPART (NovoLOG) 100 UNIT/ML VIAL SQ SCH ×4 (07:42→20:42)
[2019-06-10] MEDS ORDERED: LIDOCAINE 1% INJ 10MG/ML (20 ML MDV) ONE (09:21)
[2019-06-10] MEDS ORDERED: VERAPAMIL 2.5 MG/ML 2 ML AMP ONE (09:24)
[2019-06-10] MEDS ORDERED: IV FLUID CONTINUATION 1,000 ML IV ONE (09:45)
[2019-06-10] MEDS ORDERED: LIDOCAINE 1% INJ 10MG/ML (20 ML MDV) SQ ONE (10:02)
[2019-06-10] MEDS ORDERED: NITROGLYCERIN SL TABS 0.4 MG TAB SUBLINGUAL ONE ×3 (10:06→10:07)
--- NOTE | 2019-06-10 10:15 | P.PN ---
Subjective This is a pleasant 88-year-old female past medical history significant for coronary artery disease status post bypass grafting, hypertension, dyslipidemia and diabetes mellitus. She is scheduled to undergo cardiac catheterization today with Dr. Barclay secondary to unstable angina with exertional shortness of breath. She is seen and examined sitting up in bed in no acute distress. She denies symptoms of active chest discomfort or shortness of breath at rest. Telemetry tracings unremarkable. Blood pressure 152/73 heart rate 58 afebrile and maintaining oxygen saturation on room air. Creatinine 0.71. Currently maintained on aspirin, atorvastatin, losartan, HCTZ and Toprol. Echocardiogram obtained yesterday reveals preserved LV systolic function with ejection fraction 50-55%, apical septal wall motion hypokinesia, mild MR and mild TR. GENERAL: Well-appearing, well-nourished and in no acute distress. NECK: Supple without JVD or thyromegaly. LUNGS: Breath sounds clear to auscultation bilaterally. Respiration equal and unlabored. No wheezes, rales or rhonchi. HEART: Regular rate and rhythm with systolic ejection murmur at the base, no rubs or gallops. S1 and S2 heard. EXTREMITIES: Normal range of motion, no edema. No clubbing or cyanosis. Peripheral pulses intact. ASSESSMENT Unstable angina with exertional chest pain and shortness of breath History of coronary artery disease s/p bypass grafting with SALINAS-LAD, SVG-1st diagonal branch and SVG-OM Hypertension Dyslipidemia Diabetes mellitus PLAN I have discussed the risks, benefits and alternative therapies for the above- mentioned procedure and for both sedation/analgesia as well as necessary blood product administration, if indicated, as they pertain to this patient. The patient has indicated understanding and acceptance of the risks and procedures discussed. Questions have been answered appropriately and she is agreeable to move forward with above stated procedure. Further recommendations to follow based on catheterization findings. Nurse Practitioner note has been reviewed, I agree with a documented findings and plan of care. Patient was seen and examined. Objective - Vital Signs Vital signs: Vital Signs Temp 97.8 F 06/10/19 07:10 Pulse 58 L 06/10/19 07:10 Resp 18 06/10/19 07:10 BP 152/73 06/10/19 07:10 Pulse Ox 100 06/10/19 07:10 Intake & Output 06/09/19 06/10/19 06/10/19 18:59 06:59 18:59 Intake Total 676 Output Total 400 Balance 276 Intake: Oral 476 Other 200 Output: Urine 400 Other: Voiding Method Toilet Toilet # Voids 1 1 # Bowel Movements 1 - Labs CBC & Chem 7: 06/08/19 11:51 06/08/19 11:51 Labs: Abnormal Lab Results - Last 24 Hours (Table) 06/09/19 06/09/19 06/09/19 Range/Units 10:10 11:45 16:36 POC Glucose (mg/dL) 168 H 140 H (75-99) mg/dL Ur Leukocyte Esterase Trace H (Negative) Urine Bacteria Rare H (None) /hpf 06/09/19 06/10/19 Range/Units 20:10 06:37 POC Glucose (mg/dL) 194 H 138 H (75-99) mg/dL Ur Leukocyte Esterase (Negative) Urine Bacteria (None) /hpf
[2019-06-10] MEDS ORDERED: IOPAMIDOL-370 100ML BTL INJ ONE (10:22)
[2019-06-10] MEDS ORDERED: BIVALIRUDIN 250 MG in SODIUM CHLORIDE 0.9% 50 ML IV ONE (10:35)
[2019-06-10] MEDS ORDERED: BIVALIRUDIN BOLUS 250 MG/50 ML IV ONE (10:35)
[2019-06-10] MEDS: NITROGLYCERIN 1000MCG/10ML SYRINGE INTRACORON ONE ×2 (10:55→11:01)
[2019-06-10] MEDS ORDERED: IOPAMIDOL-370 125ML BTL INJ ONE (10:55)
[2019-06-10] MEDS ORDERED: CLOPIDOGREL 75 MG TAB ONE (10:58)
[2019-06-10] MEDS ORDERED: HYDROmorphone 1 MG/ML 1 ML SYRINGE ONE (11:00)
[2019-06-10] MEDS ORDERED: CLOPIDOGREL 75 MG TAB PO ONE (11:02)
[2019-06-10] MEDS ORDERED: HYDROmorphone 1 MG/ML 1 ML SYRINGE IVP ONE (11:02)
[2019-06-10 12:27] LABS: Glucose,Whole Blood 136 mg/dL (75-99)
[2019-06-10] MEDS: SODIUM CHLORIDE 0.9% 1,000 ML IV SCH ×2 (12:37→23:16)
[2019-06-10 17:15] LABS: Glucose,Whole Blood 149 mg/dL (75-99)
--- NOTE | 2019-06-10 17:15 | P.PN ---
Progress Note - Text Progress Note Date: 06/10/19 Chief Complaint: Short of breath with exertion History of presenting complaint: This is a very pleasant 88-year-old patient of Dr. Wilbert Franco. Chronic stable medical conditions include coronary artery disease with coronary bypass in 2002, diabetes mellitus type 2, GERD, hypertension, osteoarthritis, chronic back pain, varicose veins. This is noted that she's been becoming weaker progressively. Gets very easily short of breath with exertion. Getting tired very easily and oriented. Appetite is somewhat gone down. Has been no significant weight loss. No change in bowel or urine pattern. No cough or shortness of breath at rest otherwise. No fever no chills. Admitted with unstable angina Today-patient was taken to cardiac builder's labourer and had a angioplasty stenting to RCA. No chest pain or short of breath. Patient's 2 daughters at the bedside. Formal cath Report is not in.. Review of systems: Was done for constitutional, cardiovascular, GI, pulmonary. relevant finding as above Active Medications Hydrocodone Bitart/Acetaminophen ([place] 7.5-325) 1 each PO Q6H PRN PRN Reason: Pain Last Admin: 06/10/19 06:15 Dose: 1 each Documented by: Alprazolam (Xanax) 0.25 mg PO Q6HR PRN PRN Reason: Mild Anxiety Alprazolam (Xanax) 0.5 mg PO Q6HR PRN PRN Reason: Moderate Anxiety Ascorbic Acid (Vitamin C) 500 mg PO DAILY [facility] Last Admin: 06/10/19 06:16 Dose: 500 mg Documented by: Aspirin (Aspirin) 81 mg PO DAILY [facility] Atorvastatin Calcium (Lipitor) 40 mg PO DAILY [facility] Calcium Carbonate/Glycine (Tums) 1,000 mg PO DAILY [facility] Last Admin: 06/10/19 06:16 Dose: 1,000 mg Documented by: Cholecalciferol (Vitamin D3 (25 Mcg = 1000 Iu)) 2,000 unit PO DAILY [facility] Last Admin: 06/10/19 06:15 Dose: 2,000 unit Documented by: Clopidogrel Bisulfate (Plavix) 75 mg PO DAILY [facility] Fentanyl (Duragesic 25mcg/Hr Patch) 1 patch TRANSDERM Q72H [facility] Last Admin: 06/08/19 17:35 Dose: Not Given Documented by: Folic Acid (Folic Acid) 0.5 mg PO DAILY [facility] Last Admin: 06/10/19 06:15 Dose: 0.5 mg Documented by: HCTZ/Losartan Potassium (Hyzaar 50-12.5) 2 each PO DAILY [facility] Last Admin: 06/10/19 06:16 Dose: 2 each Documented by: Sodium Chloride (Saline 0.9%) 1,000 mls @ 75 mls/hr IV .[id number] [facility] Stop: 06/11/19 05:31 Last Admin: 06/10/19 12:37 Dose: Not Given Documented by: Insulin Aspart (Novolog) [address] [facility]; Protocol Last Admin: 06/10/19 12:58 Dose: 1 unit Documented by: Insulin Detemir (Levemir) 18 unit SQ [facility] Last Admin: 06/09/19 21:09 Dose: 18 unit Documented by: Magnesium Oxide (Mag-Ox) 400 mg PO DAILY [facility] Last Admin: 06/10/19 06:16 Dose: 400 mg Documented by: Metoprolol Succinate (Toprol Xl) 12.5 mg PO [facility] Last Admin: 06/09/19 21:08 Dose: 12.5 mg Documented by: Multivitamins/Minerals (Ivite) 1 each PO BID [facility] Last Admin: 06/10/19 06:16 Dose: 1 each Documented by: Naloxone HCl (Narcan) 0.2 mg IV Q2M PRN PRN Reason: Opioid Reversal Nitroglycerin (Nitrostat) 0.4 mg SUBLINGUAL Q5M PRN PRN Reason: Chest Pain Ondansetron HCl (Zofran Odt) 4 mg PO Q12H PRN PRN Reason: Nausea Pantoprazole Sodium (Protonix) 40 mg PO [facility] Last Admin: 06/09/19 21:08 Dose: 40 mg Documented by: Physical examination: VITAL SIGNS: 97.8, 67, 16, 159/73, 2% room air GENERAL: Laying in bed, comfortable EYES: Pupils equal. Conjunctiva normal. HEENT: External appearance of nose and ears normal, oral cavity grossly normal. NECK: JVD not raised; masses not palpable. HEART: First and second heart sounds are normal; no edema. LUNGS: Respiratory rate normal; clear to auscultation. ABDOMEN: Soft, nontender, liver spleen not palpable, no masses palpable. PSYCH: Alert and oriented x3; mood and affect normal. LOWER extremities: Prominent varicose veins INVESTIGATIONS, reviewed in the clinical context: White count 7.7 hemoglobin 12.3 potassium 4.9 creatinine 0.71 Troponin I 3 negative ProBNP 339 EKG tracing personally reviewed by me-ST segment depression in 1 aVL and lateral leads Chest x-ray film personally reviewed by me-lung harkins are clear with elevation of the right diaphragm 2-D echo-EF 50-55%. Septal albuterol motion is hypokinetic Assessment: -Unstable angina in a patient with known coronary artery disease. Patient has ST segment changes in the inferolateral leads. Suspect disease in the right coronary system -Cardiac catheterization with stent to the RCA. This admission -Coronary artery disease with prior history of coronary bypass -Diabetes mellitus type 2 -GERD -Essential hypertension -Primary osteoarthritis -Varicose veins lower extremity -Chronically elevated right diaphragm Plan: Patient status post cardiac cath. Stent of the RCA. Continue current medication treatment plan. Care was discussed with the patient and the 2 daughters at the bedside
[2019-06-10 20:33] LABS: Glucose,Whole Blood 207 mg/dL (75-99)
[2019-06-10] MEDS: PANTOPRAZOLE 40 MG TABLET PO SCH (20:40)
[2019-06-10] MEDS: METOPROLOL SUCCINATE (ER) 25 MG TAB.ER.24H PO SCH (20:40)
[2019-06-10] MEDS: INSULIN DETEMIR (LEVEMIR) 100 UNIT/ML SYR SQ SCH (20:41)
[2019-06-11 05:59] LABS: Glucose,Whole Blood 102 mg/dL (75-99)
[2019-06-11] MEDS: INSULIN ASPART (NovoLOG) 100 UNIT/ML VIAL SQ SCH (06:16)
[2019-06-11 06:45] LABS: Basophils % (A) 0 %; Eosinophils # (A) 0.2 k/uL (0-0.7); Eosinophils % (A) 2 %; HCT 32.5 % (34.0-46.0); HGB 11.4 gm/dL (11.4-16.0); Lymphocytes # (A) 2.2 k/uL (1.0-4.8); Lymphocytes % (A) 27 %; MCH 29.1 pg (25.0-35.0); MCV 83.2 fL (80.0-100.0); Monocytes # (A) 0.4 k/uL (0-1.0); Monocytes % (A) 5 %; Neutrophils # (A) 4.9 k/uL (1.3-7.7); Neutrophils % (A) 62 %; Platelet Count 231 k/uL (150-450); RBC 3.91 m/uL (3.80-5.40); RDW 13.6 % (11.5-15.5)
[2019-06-11 06:57] LABS: African American GFR (CKD) >90 (>60 ml/min/1.73 sqM); Anion Gap 7 mmol/L; Blood Urea Nitrogen 10 mg/dL (7-17); Calcium 9.1 mg/dL (8.4-10.2); Carbon Dioxide 24 mmol/L (22-30); Chloride 103 mmol/L (98-107); Glucose 99 mg/dL (74-99); Potassium 3.8 mmol/L (3.5-5.1); Sodium 134 mmol/L (137-145)
[2019-06-11 08:49] VITALS: BP 136/62; PULSE 82; RESP 18; TEMP 97.9
[2019-06-11] MEDS: FOLIC ACID 1 MG TAB PO SCH (08:54)
[2019-06-11] MEDS: MAGNESIUM OXIDE 400 MG TAB PO SCH (08:54)
[2019-06-11] MEDS: CHOLECALCIFEROL 1,000 UNIT TAB PO SCH (08:54)
[2019-06-11] MEDS: LOSARTAN-HCTZ 50-12.5 MG 1 EACH TAB PO SCH (08:55)
[2019-06-11] MEDS: CALCIUM CARBONATE 500 MG CHEWABLE PO SCH (08:55)
[2019-06-11] MEDS: ASCORBIC ACID 500 MG TAB PO SCH (08:55)
[2019-06-11] MEDS: VIT A,C & E-LUTEIN-MINERALS 1 EACH TAB PO SCH (08:55)
[2019-06-11] MEDS ORDERED: ASPIRIN 81 MG PO SCH (09:00)
[2019-06-11] MEDS ORDERED: CLOPIDOGREL 75 MG TAB PO SCH (09:00)
[2019-06-11] MEDS ORDERED: ATORVASTATIN 40 MG TAB PO SCH (09:00)
--- NOTE | 2019-06-11 10:45 | P.DS ---
Providers Date of admission: 06/08/19 15:47 Attending physician: Mango Khan Consults: 06/08/19 15:48 Consult Physician Routine Consulting Provider: Jacob Barclay Consult Reason/Comments: Exertional dyspnea Do you want consulting provider notified?: Yes [facility] Course: 88-year-old female was admitted for unstable angina underwent cardiac catheterization and stenting to RCA. Patient is clinically doing well will be discharged today echo cardiac gram showed normal ejection fraction. Patient is hyponatremic because of which diuretic therapy will be discontinued and instead I'll increase the dose of losartan. Patient will follow-up with cardiology and the PCP as an outpatient in about 3-7 days. PHYSICAL EXAMINATION: GENERAL: The patient is alert and oriented x3, not in any acute distress. Well developed, well nourished. HEENT: Pupils are round and equally reacting to light. EOMI. No scleral icterus. No conjunctival pallor. Normocephalic, atraumatic. No pharyngeal erythema. No thyromegaly. CARDIOVASCULAR: S1 and S2 present. No murmurs, rubs, or gallops. PULMONARY: Chest is clear to auscultation, no wheezing or crackles. ABDOMEN: Soft, nontender, nondistended, normoactive bowel sounds. No palpable organomegaly. MUSCULOSKELETAL: No joint swelling or deformity. EXTREMITIES: No cyanosis, clubbing, or pedal edema. NEUROLOGICAL: Gross neurological examination did not reveal any focal deficits. SKIN: No rashes. For other medical problems and has physician course please refer to dictation from Dr. Khan from yesterday Patient Condition at Discharge: Fair Plan - Discharge Summary Discharge Rx Participant: No New Discharge Prescriptions: New Clopidogrel [Plavix] 75 mg PO DAILY #90 tab Atorvastatin [Lipitor] 40 mg PO DAILY #90 tab Nitroglycerin Sl Tabs [Nitrostat] 0.4 mg SUBLINGUAL Q5M PRN #30 tab PRN Reason: Chest Pain Losartan [Cozaar] 75 mg PO DAILY #30 tab Continue Cholecalciferol [Vitamin D3 (25 Mcg = 1000 Iu)] 2,000 unit PO DAILY Folic Acid 0.4 mg PO DAILY Chromium Picolinate 400 mcg PO DAILY Ascorbic Acid [Vitamin C] 500 mg PO DAILY Magnesium Oxide [Mag-Ox] 400 mg PO DAILY HYDROcodone/APAP 7.5-325MG [[place] 7.5-325] 1 tab PO Q6H PRN PRN Reason: Pain Aspirin EC [Ecotrin Low Dose] 81 mg PO HS Omeprazole [PriLOSEC] 20 mg PO HS fentaNYL [Fentanyl] 1 patch TRANSDERM Q72H Insulin Detemir [Levemir Flextouch] 18 units SQ HS Calcium 1000mg 1,000 mg PO DAILY Fish Oil/Dha/Epa [Fish Oil 1,200 mg Fish Oil] 1 cap PO DAILY Insulin Lispro [humaLOG Kwikpen] See Protocol SQ AC-TID Vit C/E/Zn/Coppr/Lutein/Zeaxan [Preservision Areds 2 Softgel] 1 cap PO BID Metoprolol Succinate (ER) [Toprol XL] 25 mg PO HS Ondansetron Odt [Zofran ODT] 4 mg PO Q12H PRN PRN Reason: Nausea Discontinued Losartan/Hydrochlorothiazide [Losartan-Hctz 100-25 mg Tab] 1 tab PO DAILY Discharge Medication List Ascorbic Acid [Vitamin C] 500 mg PO DAILY 05/08/16 [History] Aspirin EC [Ecotrin Low Dose] 81 mg PO HS 05/08/16 [History] Calcium 1000mg 1,000 mg PO DAILY 05/08/16 [History] Cholecalciferol [Vitamin D3 (25 Mcg = 1000 Iu)] 2,000 unit PO DAILY 05/08/16 [History] Chromium Picolinate 400 mcg PO DAILY 05/08/16 [History] Folic Acid 0.4 mg PO DAILY 05/08/16 [History] HYDROcodone/APAP 7.5-325MG [[place] 7.5-325] 1 tab PO Q6H PRN 05/08/16 [History] Insulin Detemir [Levemir Flextouch] 18 units SQ HS 05/08/16 [History] Magnesium Oxide [Mag-Ox] 400 mg PO DAILY 05/08/16 [History] Omeprazole [PriLOSEC] 20 mg PO HS 05/08/16 [History] fentaNYL [Fentanyl] 1 patch TRANSDERM Q72H 05/08/16 [History] Fish Oil/Dha/Epa [Fish Oil 1,200 mg Fish Oil] 1 cap PO DAILY 07/22/17 [History] Insulin Lispro [humaLOG Kwikpen] See Protocol SQ AC-TID 01/22/18 [History] Vit C/E/Zn/Coppr/Lutein/Zeaxan [Preservision Areds 2 Softgel] 1 cap PO BID 08/24/17 [History] Metoprolol Succinate (ER) [Toprol XL] 25 mg PO HS 06/08/19 [History] Ondansetron Odt [Zofran ODT] 4 mg PO Q12H PRN 06/08/19 [History] Atorvastatin [Lipitor] 40 mg PO DAILY #90 tab 06/10/19 [Rx] Clopidogrel [Plavix] 75 mg PO DAILY #90 tab 06/10/19 [Rx] Losartan [Cozaar] 75 mg PO DAILY #30 tab 06/11/19 [Rx] Nitroglycerin Sl Tabs [Nitrostat] 0.4 mg SUBLINGUAL Q5M PRN #30 tab 06/11/19 [Rx] Follow up Appointment(s)/Referral(s): Jacob Barclay MD [STAFF PHYSICIAN] - 06/14/19 9:45 am Wilbert Simon MD [Primary Care Provider] - 3 Days Patient Instructions/Handouts: Angina (DC), Right Heart Catheterization (DC), Dyspnea (DC) Discharge Disposition: HOME SELF-CARE
--- NOTE | 2019-06-11 12:48 | P.PN ---
Subjective This is a pleasant 88-year-old female past medical history significant for coronary artery disease status post bypass grafting, hypertension, dyslipidemia and diabetes mellitus. She is scheduled to undergo cardiac catheterization today with Dr. Barclay secondary to unstable angina with exertional shortness of breath. She is seen and examined laying flat in bed in no acute distress with her daughter at the bedside. She underwent successful stent placement unprotected RCA yesterday with Dr. Barclay yesterday. She is currently maintained on dual antiplatelet therapy. She denies symptoms of chest discomfort, shortness of breath, dizziness or palpitations. Blood pressure 136/62 heart rate 82 afebrile maintaining oxygen saturation on room air. Laboratory data reviewed, WBC 8, hemoglobin 11.4, platelets 231, sodium 134, potassium 3.8, creatinine 0.66. GENERAL: Well-appearing, well-nourished and in no acute distress. NECK: Supple without JVD or thyromegaly. LUNGS: Breath sounds clear to auscultation bilaterally. Respiration equal and unlabored. No wheezes, rales or rhonchi. HEART: Regular rate and rhythm with systolic ejection murmur at the base, no rubs or gallops. S1 and S2 heard. EXTREMITIES: Normal range of motion, no edema. No clubbing or cyanosis. Peripheral pulses intact. Right groin is soft, nontender, no hematoma with mild ecchymosis noted. ASSESSMENT Unstable angina with exertional chest pain and shortness of breath History of coronary artery disease s/p bypass grafting with SALINAS-LAD, SVG-1st diagonal branch and SVG-OM Hypertension Dyslipidemia Diabetes mellitus PLAN Stable from a cardiac perspective on current medical regimen. The importance of dual antiplatelet therapy has been discussed with the patient and her daughter. She has been intolerant to statins in the past however has been tolerating since admission. She is agreeable to continue taking at home and assess for myopathies. Follow-up appointment has been made the office with Dr. Barclay for next week. Nurse Practitioner note has been reviewed, I agree with a documented findings and plan of care. Patient was seen and examined. Objective - Vital Signs Vital signs: Vital Signs Temp 97.9 F 06/11/19 08:00 Pulse 82 06/11/19 08:00 Resp 18 06/11/19 08:00 BP 136/62 06/11/19 08:00 Pulse Ox 98 06/11/19 08:00 Intake & Output 06/10/19 06/11/19 06/11/19 18:59 06:59 18:59 Intake Total 355 420 240 Output Total 700 900 Balance -345 -480 240 Weight 76.2 kg Intake: IV 175 Oral 180 420 240 Output: Urine 700 900 Other: Voiding Method Toilet Toilet # Voids 2 - Labs CBC & Chem 7: 06/11/19 06:14 06/11/19 06:14 Labs: Abnormal Lab Results - Last 24 Hours (Table) 06/10/19 06/10/19 06/11/19 Range/Units 17:02 20:32 05:57 Hct (34.0-46.0) % Sodium (137-145) mmol/L POC Glucose (mg/dL) 149 H 207 H 102 H (75-99) mg/dL 06/11/19 06/11/19 Range/Units 06:14 06:14 Hct 32.5 L (34.0-46.0) % Sodium 134 L (137-145) mmol/L POC Glucose (mg/dL) (75-99) mg/dL
--- NOTE | 2019-06-12 09:57 | CC ---
CARDIAC CATHETERIZATION REPORT DATE OF SERVICE: 06/10/2019. PROCEDURE PERFORMED: 1. Left heart catheterization and coronary angiography. 2. Selective injection of 2 saphenous vein grafts and the left internal mammary artery graft. 3. PTCA and stenting of the mid/distal RCA with a drug-eluting stent. PERFORMED BY: Dr. Marla Barclay. SEDATION: Moderate conscious sedation time was 68 minutes. CLINICAL INFORMATION: Mrs. Destiny Babcock is an 88-year-old elderly lady with type 2 diabetes, hypertension, hyperlipidemia, and CAD with a prior aortocoronary bypass surgery. In year 2002, she underwent aortocoronary bypass surgery with a SALINAS to LAD, vein graft to the diagonal branch of LAD and vein graft to the obtuse marginal branch of circumflex. The RCA was not stenosed and therefore no grafts were placed. She did fairly well. She has diabetes, hypertension, hyperlipidemia, and of late has been having exertional shortness of breath and tightness and pressure in the chest suggestive of angina. She was admitted to the hospital in the observation unit and had normal troponins. After due discussion regarding risks, benefits, and options, coronary angiography was advised. PROCEDURE NOTE: Under local anesthesia and strict aseptic precautions, a 6-[place] introducer was placed in the right femoral artery. Using a standard left Dennis catheter, I performed selective coronary angiography of the left coronary artery and I tried to use a Anna catheter to perform selective coronary angiography of the right coronary artery, but I could not get a good seating. I then used the same Anna catheter to do a SALINAS injection. Following this, I tried a standard right Dennis and I was able to get selective coronary angiography of the [place] RCA and the same catheter was used to get selective injection of the diagonal graft as well as the obtuse marginal graft. Following this, I checked LV pressures but did not perform an LV-gram. I noted that there was a significant lesion within the [place] RCA in the midportion and also the SALINAS graft was nonfunctional. I proceeded to perform intervention of the [place] RCA in the same setting. CARDIAC CATHETERIZATION FINDINGS: Left ventricle end-diastolic pressure was about 10-12 mmHg without any gradient across aortic valve. LEFT MAIN CORONARY ARTERY: This is a short patent disease-free vessel that bifurcates into LAD and circumflex. LEFT ANTERIOR DESCENDING CORONARY ARTERY: This vessel has multiple areas of narrowing that ranged anywhere from 40 to 55% diffusely. The midportion has an eccentric 50-60 percent stenosis, gives off a diagonal branch also. The vessel runs all the way to the apex and there is minimal competitive flow in the apex. It appears that the LAD is diffusely diseased and the SALINAS graft is not functioning. There is heavy calcification in the entire LAD, but no focal critical lesions are noted. LEFT POSTERIOR CIRCUMFLEX CORONARY ARTERY: Technically a nondominant vessel that is totally occluded after it gives off in a groove branch. The first obtuse marginal was also totally occluded and there is some distal reconstitution of the obtuse marginal and other secondary branches, but circumflex effectively has not much antegrade flow. RIGHT CORONARY ARTERY: The right coronary artery, this vessel is a dominant, has no significant disease. In the proximal and midportion at the junction of the middle and distal 1/3, there is an eccentric 80% lesion and then gives off an acute marginal branch. Just before the lesion and distally bifurcates into what seems to be a PDA and PLV branches. There are some collaterals that are going to the distal LAD as well. Left internal mammary artery graft to LAD: This graft is nonfunctional, very string like appearance. Distally it seems to be attached with an apical portion of the LAD with limited flow noted. There is actually competitive flow between this graft and the [place] LAD flow. The SALINAS graft is therefore nonfunctional. Saphenous vein graft to the diagonal branch of LAD: This graft is widely patent at its origin, has about a 40% stenosis in the proximal portion. Opacified diagonal is free of significant disease but a small caliber vessel. In the insertion site, there is about a 40% narrowing noted. Saphenous vein graft to the obtuse marginal branch of circumflex: This graft is patent. Has mild irregularities. No significant disease. Distal opacification of the 2 branches of OM are noted. There is mild disease. Left ventriculogram was not performed. FINAL IMPRESSION: This patient has a total occlusion of the circumflex marginal and the LAD is diffusely diseased with antegrade flow. Lesions are anywhere from 40 to 55%. SALINAS graft is nonfunctional. Two vein graft to the diagonal and circumflex marginal are patent. [place] RCA has a 70-80 percent eccentric lesion in the midportion after an acute marginal branch, which seems to supply the PDA distribution. PCI PROCEDURE DETAILS: I used a Autosprite catheter after trying the Dennis catheter. With this, I got good seating. A run-through wire was used to cross the lesion. Predilatation was performed with an NC trek 2.5, 15 mm balloon and then a 2.5 caliber 15 mm long Xience stent was deployed at 13 atmospheres. Patient had chest pain, mild EKG changes and excellent angiographic result was achieved. The sheath was taken out and a Perclose device used to secure hemostasis. Excellent angiographic result of the mid RCA stenosis was achieved without complication. ANESTHESIA: Moderate conscious sedation time was 68 minutes. Results were discussed with the patient and family members. I expect she will be discharged tomorrow if she remains stable. MMODL / IJN: [id number] /
== END 2019-06-11 11:40 | disposition home or self-care (01) ==
LOC: EC 10:49 → 1SOBS 15:47 → 3SCARD 06-10 11:09
PROVIDERS: ADMIT Hospitalist; ATTEND Hospitalist
DX: I25.110 Atherosclerotic heart disease of native coronary artery with unstable angina pectoris (principal); I25.82 Chronic total occlusion of coronary artery; T82.218A Other mechanical complication of coronary artery bypass graft, initial encounter; I10 Essential (primary) hypertension; Z95.1 Presence of aortocoronary bypass graft; K21.9 Gastro-esophageal reflux disease without esophagitis; E11.9 Type 2 diabetes mellitus without complications; M19.91 Primary osteoarthritis, unspecified site; E78.2 Mixed hyperlipidemia; I83.90 Asymptomatic varicose veins of unspecified lower extremity; E87.1 Hypo-osmolality and hyponatremia; T50.2X5A Adverse effect of carbonic-anhydrase inhibitors, benzothiadiazides and other diuretics, initial encounter; H91.90 Unspecified hearing loss, unspecified ear; G89.29 Other chronic pain; M54.9 Dorsalgia, unspecified; M25.551 Pain in right hip; M25.552 Pain in left hip; M25.512 Pain in left shoulder; E66.9 Obesity, unspecified; Z68.27 Body mass index [BMI] 27.0-27.9, adult; Z79.82 Long term (current) use of aspirin; Z79.4 Long term (current) use of insulin; Z79.891 Long term (current) use of opiate analgesic; Z79.899 Other long term (current) drug therapy; Z88.0 Allergy status to penicillin; Z88.1 Allergy status to other antibiotic agents; Z88.5 Allergy status to narcotic agent; Z88.8 Allergy status to other drugs, medicaments and biological substances; Z86.718 Personal history of other venous thrombosis and embolism; Z90.49 Acquired absence of other specified parts of digestive tract; Z90.710 Acquired absence of both cervix and uterus; Z98.42 Cataract extraction status, left eye; Z98.41 Cataract extraction status, right eye; Z87.440 Personal history of urinary (tract) infections; Z82.49 Family history of ischemic heart disease and other diseases of the circulatory system; Z83.6 Family history of other diseases of the respiratory system; Z84.1 Family history of disorders of kidney and ureter; Z83.3 Family history of diabetes mellitus; Z80.0 Family history of malignant neoplasm of digestive organs
CPT/HCPCS: 99152; 99153 ×3; 93005 ×3; 99285; 36415; 93306; 93459; 83880; 80053; 80048; 82550; 83735; 84484 ×2; 85025 ×2; 85610; 85730; 81001; 71046; G0378 ×5; C9600; C1887 ×2; C1725; C1769 ×4; C1894 ×2; C1760; C1874; J2001; J1170; J0583; Q9967 ×2

== ENCOUNTER → 2019-06-22 | Outpatient (CLI) | payer MEDICARE ==
--- NOTE | 2019-06-23 07:51 | US ---
EXAMINATION TYPE: US renals and bladder DATE OF EXAM: 06/22/2019 COMPARISON: CT 2016 CLINICAL HISTORY: UTI N39.0. Urinary tract infectious disease. EXAM MEASUREMENTS: Right Kidney: 9.9 x 5.0 x 4.6 cm Left Kidney: 9.3 x 4.6 x 4.9 cm *Limited exam, Difficult to obtain clear images of kidney borders. Right Kidney: No hydronephrosis or masses seen Left Kidney: No hydronephrosis or masses seen Bladder: Patient did not prepare properly. Not seen, appears undistended. Bilateral Jets seen: No Liver shows a coarse echotexture possibly due to hepatocellular disease, hepatic steatosis. Kidneys s how normal cortical medullary differentiation. IMPRESSION: Exam is somewhat limited technically. No evident hydronephrosis.
== END | disposition home or self-care (01) ==
LOC: RADUSMAIN 18:12
PROVIDERS: ATTEND Internal Medicine
DX: N39.0 Urinary tract infection, site not specified (principal)
CPT/HCPCS: 76770